=== PATIENT | male | born 1975 | race Caucasian/White ===

== ENCOUNTER 2017-11-14 22:29 | Emergency (ER) | payer MEDICARE ==
[~2017-11-14] VITALS: Ht 193 cm; Wt 118.4 kg
[2017-11-14] MEDS ORDERED: ONDANSETRON ODT 4 MG ONE (23:02)
[2017-11-14] MEDS ORDERED: ONDANSETRON ODT 4 MG PO ONE (23:30)
[2017-11-14 23:39] LABS: BASOPHILS # (AUTO) 0.05 x10^3/uL (0-0.1); BASOPHILS % (AUTO) 1 % (0-1); EOSINOPHILS # (AUTO) 0.11 x10^3/uL (0-0.4); EOSINOPHILS % (AUTO) 1 % (1-7); LYMPHOCYTES % (AUTO) 6 % (22-44); MD NO; MEAN CORPUSCULAR HEMOGLOBIN 30.9 pg (27.5-34.5); MEAN CORPUSCULAR HGB CONC 34.4 g/dL (33.2-36.2); MEAN CORPUSCULAR VOLUME 89.8 fL (81-97); MEAN PLATELET VOLUME 9.3 fL (7.4-10.4); MONOCYTES # (AUTO) 0.34 x10^3/uL (0.2-0.8); MONOCYTES % (AUTO) 3 % (2-9); NEUTROPHILS # (AUTO) 9.89 x10^3/uL (1.8-6.8); NEUTROPHILS % (AUTO) 89 % (42-75); PLATELET COUNT 216 x10^3/uL (130-400); RED BLOOD COUNT 5.07 x10^6/uL (4.38-5.82); RED CELL DISTRIBUTION WIDTH 13.4 % (9.4-14.8)
[2017-11-14 23:50] LABS: ALANINE AMINOTRANSFERASE 23 U/L (12-78); ALBUMIN 3.5 g/dL (3.4-5.0); ANION GAP 6 mmol/L (5-15); CALCIUM 8.2 mg/dL (8.5-10.1); CHLORIDE 114 mmol/L (98-107); CREATININE 1.09 mg/dL (0.7-1.3)
[2017-11-14 23:54] LABS: ALKALINE PHOSPHATASE 82 U/L (45-117); BILIRUBIN,TOTAL 0.4 mg/dL (0.2-1.0); TOTAL PROTEIN 6.9 g/dL (6.4-8.2); TROPONIN I < 0.015 ng/mL (0.000-0.045)
[2017-11-15 00:01] VITALS: BP 119/71
== END 2017-11-15 01:20 | disposition home or self-care (01) ==
LOC: ED 23:06
DX: M79.1 Myalgia (principal); R11.2 Nausea with vomiting, unspecified; M25.512 Pain in left shoulder
CPT/HCPCS: 36415; 71045; 80053; 84484; 85025; 93005; 99285; Q0162

== ENCOUNTER 2017-11-24 18:52 | Emergency (ER) | payer MEDICARE ==
[~2017-11-24] VITALS: Ht 193 cm; Wt 115.5 kg
[2017-11-24 18:54] VITALS: BP 142/85
[2017-11-24] MEDS ORDERED: L.E.T SOLUTION TP ONE ×2 (19:29→19:30)
[2017-11-24] MEDS ORDERED: DIPH,PERTUSS(ACELL),TET VAC/PF 0.5 ML IM-VACC ONE ×2 (19:29→19:30)
[2017-11-24] MEDS ORDERED: LIDOCAINE-MPF 2%, 2ML ONE (19:29)
[2017-11-24] MEDS ORDERED: LIDOCAINE 2%, 20ML INFIL ONE (19:30)
== END 2017-11-24 20:40 | disposition home or self-care (01) ==
LOC: ED 19:25
DX: S61.002A Unspecified open wound of left thumb without damage to nail, initial encounter (principal); W45.8XXA Other foreign body or object entering through skin, initial encounter; Y93.89 Activity, other specified; Y99.8 Other external cause status; Y92.89 Other specified places as the place of occurrence of the external cause
CPT/HCPCS: 90471; 90715; 99283

== ENCOUNTER 2017-11-29 19:27 | Emergency (ER) | payer MEDICARE ==
[~2017-11-29] VITALS: Ht 193 cm; Wt 116.4 kg
[2017-11-29 19:29] VITALS: BP 130/76
[2017-11-29] MEDS ORDERED: BACITRACIN ZINC OINT 500U/GM, 0.9 GM ONE (19:50)
== END 2017-11-29 20:23 | disposition home or self-care (01) ==
LOC: ED 20:12
DX: M79.645 Pain in left finger(s) (principal); Z48.01 Encounter for change or removal of surgical wound dressing
CPT/HCPCS: 82962; 99282; 99283

== ENCOUNTER 2019-05-20 12:57 | Emergency (ER) | payer MEDICARE, MEDICAID ==
[~2019-05-20] VITALS: Ht 193 cm; Wt 139.2 kg
[2019-05-20 13:08] VITALS: BP 136/107
[2019-05-20 13:38] LABS: BASOPHILS # (AUTO) 0.02 x10^3/uL (0-0.1); BASOPHILS % (AUTO) 0 % (0-1); EOSINOPHILS # (AUTO) 0.06 x10^3/uL (0-0.4); EOSINOPHILS % (AUTO) 1 % (1-7); LYMPHOCYTES # (AUTO) 1.72 x10^3/uL (1-3.4); LYMPHOCYTES % (AUTO) 21 % (22-44); MD NO; MEAN CORPUSCULAR HEMOGLOBIN 29.6 pg (27.5-34.5); MEAN CORPUSCULAR HGB CONC 33.2 g/dL (33.2-36.2); MEAN PLATELET VOLUME 8.6 fL (7.4-10.4); MONOCYTES # (AUTO) 0.51 x10^3/uL (0.2-0.8); MONOCYTES % (AUTO) 6 % (2-9); NEUTROPHILS # (AUTO) 5.86 x10^3/uL (1.8-6.8); NEUTROPHILS % (AUTO) 72 % (42-75); PLATELET COUNT 328 x10^3/uL (130-400); RED BLOOD COUNT 5.58 x10^6/uL (4.38-5.82); RED CELL DISTRIBUTION WIDTH 13.1 % (9.4-14.8)
[2019-05-20 13:49] LABS: ALANINE AMINOTRANSFERASE 67 U/L (12-78); ALBUMIN 4.2 g/dL (3.4-5.0); ANION GAP 7 mmol/L (5-15); CALCIUM 9.4 mg/dL (8.5-10.1); CHLORIDE 110 mmol/L (98-107); CREATININE 1.09 mg/dL (0.7-1.3)
[2019-05-20 13:51] LABS: ALKALINE PHOSPHATASE 97 U/L (45-117); BILIRUBIN,TOTAL 0.3 mg/dL (0.2-1.0)
--- NOTE | 2019-05-20 14:59 | NUR ---
PANTRY ATTENDANT: CALLED FOR ROOM, NO ANSWER
--- NOTE | 2019-05-20 15:20 | NUR ---
CALLED FOR REPEAT V/S. NO ANSWER
--- NOTE | 2019-05-20 15:46 | NUR ---
INVESTMENT ASSOCIATE; CALLED TO REPEAT V/S, NO ANSWER
== END 2019-05-20 15:49 | disposition left against medical advice (07) ==
LOC: ED 15:38
DX: R10.9 Unspecified abdominal pain (principal); R53.83 Other fatigue; R53.1 Weakness; R94.31 Abnormal electrocardiogram [ECG] [EKG]
CPT/HCPCS: 36415; 80053; 83690; 85025; 93005; 99284

== ENCOUNTER 2019-05-21 12:43 | Emergency (ER) | payer MEDICARE, MEDICAID ==
[~2019-05-21] VITALS: Ht 193 cm; Wt 135.0 kg
--- NOTE | 2019-05-21 13:16 | NUR ---
PT TO ED WITH COMPLAINTS IF "DIARRHEA FOR YEARS", PT REPORTS STOOL IS FORMED, BUT HE HAS MULTIPLE BM'S DAILY. PT ALSO REPORTS CP, STATES "IT FEELS LIKE SADNESS, I HAVE DEPRESSION, AND I WAS ADMITTED TO [facility] IN [place] FOR A MANIC EPISODE". DENIES SI/HI. PT REPORTS HAVING BIPOLAR DISORDER. HAS NOT BEEN TAKING HIS PSYCHIATRIC MEDICATIONS, SEROQUEL, ATIVAN, FOR "WEEKS" PT DENIES ANY OTHER C/O AT THIS TIME. PT PLACED ON ALL MONITORING, CALL LIGHT WITHIN REACH, ALL SAFETY MEASURES IN PLACE.
[2019-05-21] MEDS ORDERED: SODIUM CHLORIDE FLUSH 10ML SYR IVF ONE (13:30)
[2019-05-21 13:43] LABS: BASOPHILS # (AUTO) 0.02 x10^3/uL (0-0.1); BASOPHILS % (AUTO) 0 % (0-1); EOSINOPHILS # (AUTO) 0.03 x10^3/uL (0-0.4); EOSINOPHILS % (AUTO) 1 % (1-7); LYMPHOCYTES % (AUTO) 25 % (22-44); MD NO; MEAN CORPUSCULAR HEMOGLOBIN 29.8 pg (27.5-34.5); MEAN CORPUSCULAR HGB CONC 33.7 g/dL (33.2-36.2); MEAN CORPUSCULAR VOLUME 88.4 fL (81-97); MONOCYTES # (AUTO) 0.59 x10^3/uL (0.2-0.8); MONOCYTES % (AUTO) 9 % (2-9); NEUTROPHILS # (AUTO) 4.59 x10^3/uL (1.8-6.8); NEUTROPHILS % (AUTO) 66 % (42-75); PLATELET COUNT 316 x10^3/uL (130-400); RED BLOOD COUNT 5.53 x10^6/uL (4.38-5.82); RED CELL DISTRIBUTION WIDTH 13.5 % (9.4-14.8)
[2019-05-21 13:55] LABS: ALANINE AMINOTRANSFERASE 67 U/L (12-78); ALBUMIN 4.1 g/dL (3.4-5.0); ANION GAP 8 mmol/L (5-15); CHLORIDE 113 mmol/L (98-107); CREATININE 1.19 mg/dL (0.7-1.3)
--- NOTE | 2019-05-21 13:55 | NUR ---
PT PROVIDED UA CUP AT THIS TIME.
[2019-05-21 13:57] LABS: ALKALINE PHOSPHATASE 95 U/L (45-117); BILIRUBIN,TOTAL 0.4 mg/dL (0.2-1.0)
--- NOTE | 2019-05-21 14:06 | NUR ---
UA WALKED TO LAB.
--- NOTE | 2019-05-21 14:15 | NUR ---
CT WAITING FOR IV ACCESS
[2019-05-21 14:18] LABS: MICROSCOPIC INDICATED
--- NOTE | 2019-05-21 14:37 | NUR ---
CT MUST DO CODE NEURO PATIENT BEFORE THIS ONE
[2019-05-21 14:47] LABS: CULTURE INDICATED? NO
--- NOTE | 2019-05-21 14:51 | NUR ---
CT READY; BUT STILL WAITING; NO IV NOTED
[2019-05-21 15:40] VITALS: BP 120/58
--- NOTE | 2019-05-21 15:59 | NUR ---
TO CT SCAN
[2019-05-21] MEDS ORDERED: OMNIPAQUE 350 MG/ML, 100ML BOTTLE ONE (16:11)
== END 2019-05-21 17:45 | disposition home or self-care (01) ==
LOC: ED 15:07
DX: R19.5 Other fecal abnormalities (principal); R07.89 Other chest pain; F41.9 Anxiety disorder, unspecified; R63.0 Anorexia
CPT/HCPCS: 36415; 74177; 80053; 81001; 83690; 85025; 93005; 99285; Q9967